=== PATIENT | male | born 1945 | race Native Hawaiian/Other Pacific Islander ===

== ENCOUNTER 2017-12-22 17:23 | Emergency (ER) | payer BC, MEDICARE ==
[~2017-12-22] VITALS: Ht 167.6 cm; Wt 77.3 kg
[~2017-12-22 17:23] MED LIST: FINA5TAB41 PO; LEVO50TA11 PO
[2017-12-22] MEDS ORDERED: ATOR20TA86 PO (18:31)
[2017-12-22 21:36] LABS: BASOPHILS % (AUTO) 0.4 % (0.0-2.0); EOSINOPHILS % (AUTO) 0.6 % (1.0-6.0); HEMATOCRIT 41.9 % (41-53); LYMPHOCYTES # (AUTO) 1.7 K/uL (1.0-4.8); LYMPHOCYTES % (AUTO) 18.7 % (22.0-44.0); MEAN CORPUSCULAR HEMOGLOBIN 29.8 pg (26.0-34.0); MEAN CORPUSCULAR HGB CONC 33.4 G/dL (31.0-37.0); MEAN CORPUSCULAR VOLUME 89 fL (80-100); MONOCYTES # (AUTO) 0.7 K/uL (0.1-1.0); MONOCYTES % (AUTO) 7.5 % (2.0-9.0); NEUTROPHILS # (AUTO) 6.6 K/uL (1.8-7.7); NEUTROPHILS % (AUTO) 72.8 % (40.0-70.0); PLATELET COUNT (AUTO) 198 K/uL (150-450); RED CELL DISTRIBUTION WIDTH 13.6 % (11.5-14.5)
[2017-12-22 22:03] LABS: ANION GAP 8 mmol/L (8-16); CALCIUM, TOTAL 8.7 mg/dL (8.8-10.5); CARBON DIOXIDE 27 mmol/L (22-29); CHLORIDE 99 mmol/L (98-107); CREATININE 0.79 mg/dL (0.60-1.30); GLOMERULAR FILTR. RATE CALC > 60 mL/min (>60); GLUCOSE,RANDOM 96 mg/dL (70-110); POTASSIUM 3.7 mmol/L (3.5-5.1); SODIUM SERUM 134 mmol/L (136-145); UREA NITROGEN, BLOOD 8 mg/dL (7-18)
[2017-12-22 22:09] LABS: ALANINE AMINOTRANSFERASE 33 U/L (12-78); ALBUMIN 3.3 g/dL (3.4-5.0); ALKALINE PHOSPHATASE 61 U/L (46-116); ASPARTATE AMINOTRANSFERASE 26 U/L (15-37); BILIRUBIN,TOTAL 0.6 mg/dL (0.1-1.0); TOTAL PROTEIN, SERUM 7.2 g/dL (6.4-8.2)
[2017-12-22 22:32] LABS: GLUCOSE,POINT OF CARE 90 MG/DL (70-110)
[2017-12-22 22:50] VITALS: BP 129/75
== END 2017-12-22 22:51 | disposition home or self-care (01) ==
LOC: EMS 17:25
DX: R42 Dizziness and giddiness (principal); E03.9 Hypothyroidism, unspecified
CPT/HCPCS: 82948; 82962; 93005; 99285

== ENCOUNTER 2018-02-17 16:17 | Emergency (ER) | payer MEDICARE ==
[~2018-02-17] VITALS: Ht 165.1 cm; Wt 63.6 kg
[~2018-02-17 16:17] MED LIST changes: +ATOR20TA86 PO
[2018-02-17] MEDS ORDERED: [UNRECOGNIZED DRUG - OTHER] PO (16:23)
[2018-02-17 18:49] VITALS: BP 124/60
== END 2018-02-17 19:15 | disposition home or self-care (01) ==
LOC: EMS 16:18
DX: K59.00 Constipation, unspecified (principal); F41.9 Anxiety disorder, unspecified; E03.9 Hypothyroidism, unspecified; Z79.899 Other long term (current) drug therapy
CPT/HCPCS: 99283

== ENCOUNTER 2022-08-18 20:06 | Emergency (ER) | payer MEDICARE ==
[~2022-08-18] VITALS: Ht 165.1 cm; Wt 65.9 kg
[~2022-08-18 20:06] MED LIST changes: +[UNRECOGNIZED DRUG - OTHER] PO
[2022-08-18] MEDS ORDERED: POLY510P31 PO (20:16)
[2022-08-18] MEDS ORDERED: LEVO75 PO (20:16)
[2022-08-18] MEDS ORDERED: MULT-1303 PO (20:18)
[2022-08-18 22:37] VITALS: BP 133/74
== END 2022-08-18 22:43 | disposition home or self-care (01) ==
LOC: EMS 20:06
DX: H57.11 Ocular pain, right eye (principal); F41.9 Anxiety disorder, unspecified; E03.9 Hypothyroidism, unspecified; Z88.8 Allergy status to other drugs, medicaments and biological substances
CPT/HCPCS: 99281; Z7502